=== PATIENT | female | born 1990 | race Two or more races ===

== ENCOUNTER 2020-08-20 18:00 | Inpatient (IN) ==
[2020-08-20] MEDS ORDERED: ONDANSETRON 4 MG TAB.RAPDIS PO PRN (18:26)
[2020-08-20] MEDS ORDERED: LIDOCAINE HCL 50 ML VIAL PERI PRN (18:26)
[2020-08-20] MEDS ORDERED: BUTORPHANOL TARTRATE 2 MG/ML VIAL IV PRN ×2 (18:26)
[2020-08-20] MEDS: MISOPROSTOL 100 MCG TABLET VG PRN (19:35)
[2020-08-20] MEDS ORDERED: hydrOXYzine PAMOATE 25 MG CAPSULE PO ONE (23:52)
[2020-08-20] MEDS ORDERED: ACETAMINOPHEN 500 MG TABLET PO ONE (23:52)
[2020-08-21] MEDS: OXYTOCIN/0.9 % SODIUM CHLORIDE 30 UNITS/500 ML BAG IV ONE (03:25)
[2020-08-21] MEDS: RINGER'S SOLUTION,LACTATED 1,000 ML IV PRN ×2 (03:30→15:41)
--- NOTE | 2020-08-21 08:14 | HP ---
Chief Complaint - Chief Complaint Date of Service: 08/21/20 Time of Service: 08:03 Chief Complaint: Induction of labor History of Present Illness: 29 year old at 39w 1d who presented to labor and delivery for a medical induction of labor due to chronic hypertension. She reports ctx. Denies vb or lof. Fetus is active. Denies VALDEZ, visual changes or abdominal pain. Medical History (Last Reviewed 08/21/20 @ 08:09 by Kathy Cao MD) Gestational diabetes mellitus (GDM) (Acute) Onset Date: 06/09/20 FSBS all within normal limits except a few elevated fasting blood sugars Cardiac murmur Oral cyst SAB (spontaneous ) Thyroiditis Surgical History: Surgical History (Last Reviewed 08/21/20 @ 08:09 by Kathy Cao MD) H/O dilation and curettage Onset Date: ~2017 Family History: Family History (Last Reviewed 08/21/20 @ 08:09 by Kathy Cao MD) Mother Diabetes Pre diabetes Father Hypertension Hyperlipemia Social History: (Last Reviewed 08/21/20 @ 08:09 by Kathy Cao MD) Social History: adopted: No Marital status: household members: spouse number of children: 0 current occupational status: unemployed 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 Highest level of school completed/degree received: Associate degree: occupat Sexually Active: Yes Service: No Tobacco: Smoking Status: Never smoker Alcohol: alcohol intake: former Substance Use: substance use type: does not use Dietary Habits: caffeine: Yes caffeine comment: 1 Type: carbonated beverages Pets: pets and animals: dog(s) Review Of Systems (GEN) - Review of Systems Generalized/Overall Review: Present: No Symptoms Reported Misc: All systems neg except as marked Allergies/Adverse Reactions: Allergies Allergy/AdvReac Type Severity Reaction Status Date / Time Penicillins Allergy Mild "Hot spots Verified 08/20/20 18:24 on arms" Home Medications: HOME MEDICATIONS aspirin 81 mg chewable tablet 81 mg PO DAILY 04/12/20 [Last Taken Unknown] docusate sodium 100 mg capsule 100 mg PO DAILY PRN 04/12/20 [Last Taken Unknown] blood-glucose meter See Rx Instructions [id number] .MEDSUPPLY #1 ea 06/15/20 [Last Taken Unknown] ferrous sulfate 325 mg (65 mg iron) tablet 325 mg PO DAILY 06/15/20 [Last Taken Unknown] lancets 30 gauge See Rx Instructions [id number] .MEDSUPPLY #100 ea 06/15/20 [Last Taken Unknown] breast pump See Rx Instructions .ROUTE .MEDSUPPLY #1 ea 07/13/20 [Last Taken Unknown] Exh961/Iron/FA/O3/Dha/Epa/Fish [ Multi-Dha Softgel] 1 ea PO DAILY 08/03/20 [Last Taken Unknown] blood sugar diagnostic See Rx Instructions [id number] .MEDSUPPLY #50 ea 08/14/20 [Last Taken Unknown] Exam - Exam Vital Signs: Vital Signs - Last Taken Temp 36.7 C 08/20/20 18:48 Pulse 80 08/20/20 18:48 BP 166/98 H 08/20/20 18:48 Constitutional: Present: Alert, Oriented x3, Cooperative, No distress ENT Exam: Present: hearing grossly normal Eye Exam: bilateral eye: normal inspection Neck: Present: normal inspection Back Exam: Present: normal inspection Breasts: Present: Exam deferred Respiratory: Present: lungs clear, normal breath sounds, no respiratory distress Cardiovascular/Chest: Present: regular rate, rhythm Abdomen: Present: soft, nontender, nondistended, no rebound tenderness /Rectal: Present: Exam deferred Extremity: Present: non-tender, no calf tenderness Skin Exam: Present: normal color, warm/dry, no cyanosis Neurologic: Present: alert, normal mood/affect, oriented x 3 Appearance: Present: appropriate appearance, appropriate insight, neat, no memory impairment Eye contact: Present: cooperative, good eye contact, normal speech Thoughts: Present: normal thought pattern Diagnostic Studies: Laboratory Results Blood Type O Positive 08/20/20 18:35 Antibody Screen Negative 08/20/20 18:35 Assessment/Plan - Narrative Narrative: 29 year old at 39w 1d 1. Medical IOL due to CHTN: BPs are in the mild range. Patient asymptomatic. The patient received one dose of misoprostol overnight. Currently on pitocin at 8 milliunits/minute. Given recent breech presentation a bedside ultrasound was performed which confirms cephalic presentation. 2. GDM: FSBS now 3. History of placenta previa this : resolved 4. GBS negative - Assessment/Plan (1) 39 weeks gestation of Problem: Acute (2) History of 2019 novel coronavirus disease (COVID-19) Problem: Acute (3) Gestational diabetes mellitus (GDM) Problem: Acute Qualifiers: Gestational diabetes mellitus control: diet-controlled Trimester: third trimester Qualified Code(s): O24.410 - Gestational diabetes mellitus in , diet controlled (4) Chronic hypertension Problem: Acute (5) PCOS (polycystic ovarian syndrome) Problem: Acute (6) Anxiety Problem: Acute
--- NOTE | 2020-08-21 08:19 | ANES ---
Anesthesia Pre Procedure Eval Vitals/Labs: Last Vital Signs Temp 36.7 C 08/20/20 18:48 Pulse 80 08/20/20 18:48 BP 166/98 H 08/20/20 18:48 HOME MEDICATIONS aspirin 81 mg chewable tablet 81 mg PO DAILY 04/12/20 [Last Taken Unknown] docusate sodium 100 mg capsule 100 mg PO DAILY PRN 04/12/20 [Last Taken Unknown] blood-glucose meter See Rx Instructions [id number] .MEDSUPPLY #1 ea 06/15/20 [Last Taken Unknown] ferrous sulfate 325 mg (65 mg iron) tablet 325 mg PO DAILY 06/15/20 [Last Taken Unknown] lancets 30 gauge See Rx Instructions [id number] .MEDSUPPLY #100 ea 06/15/20 [Last Taken Unknown] breast pump See Rx Instructions .ROUTE .MEDSUPPLY #1 ea 07/13/20 [Last Taken Unknown] Fyq091/Iron/FA/O3/Dha/Epa/Fish [ Multi-Dha Softgel] 1 ea PO DAILY 08/03/20 [Last Taken Unknown] blood sugar diagnostic See Rx Instructions [id number] .MEDSUPPLY #50 ea 08/14/20 [Last Taken Unknown] Allergies/Adverse Reactions: Allergies Allergy/AdvReac Type Severity Reaction Status Date / Time Penicillins Allergy Mild "Hot spots Verified 08/20/20 18:24 on arms" - Planned Procedure Planned Procedure: Labor Epidural Medical History (Last Reviewed 08/21/20 @ 08:18 by Sreedhar Mosher CRNA) Gestational diabetes mellitus (GDM) (Acute) Onset Date: 06/09/20 FSBS all within normal limits except a few elevated fasting blood sugars Cardiac murmur Oral cyst SAB (spontaneous ) Thyroiditis Surgical History (Last Reviewed 08/21/20 @ 08:18 by Sreedhar Mosher CRNA) H/O dilation and curettage Onset Date: ~2017 Family History (Last Reviewed 08/21/20 @ 08:18 by Sreedhar Mosher CRNA) Mother Diabetes Pre diabetes Father Hypertension Hyperlipemia - Anesthesia Assessment and Plan ASA Class: PS, II Anesthesia Type Plan: Epidural
[2020-08-21] MEDS ORDERED: ONDANSETRON HCL/PF 2 MG/ML VIAL IV PRN (08:24)
[2020-08-21] MEDS ORDERED: NALOXONE HCL 1 MG/1 ML SYRG IV PRN (08:24)
[2020-08-21] MEDS ORDERED: BUPIVACAINE HCL/PF 30 ML VIAL EP SCH (08:30)
--- NOTE | 2020-08-21 08:54 | ANES ---
Post Anesthesia Assessment - Vital Signs Vitals: Last Vital Signs Temp 36.7 C 08/20/20 18:48 Pulse 80 08/20/20 18:48 BP 166/98 H 08/20/20 18:48 Airway Patency: Normal - Mental Status Level Of Consciousness: Awake - N/V Assessment Nausea/Vomiting Presence: None Dehydration:: No
--- NOTE | 2020-08-21 08:54 | ANES ---
Anesthesia Procedure Note Procedure Note: ANESTHESIA PROCEDURE NOTE Date of Procedure: 08/21/2020. Time of procedure: 834. Performed by: Sreedhar Mosher CRNA Blanket Washer: None. Preprocedure diagnosis: Active labor. Post procedure diagnosis: Same. Procedure: Insertion of labor epidural. Indications: The patient is a 29-year-old female in active labor requesting labor epidural for pain management. Findings: See below. Details of the procedure: The patient was placed in a sitting position. DuraPrep as well as Betadine swabs X3 was applied to the patient's back. Patient was then draped in a sterile fashion. Lidocaine 1% was infiltrated to the skin and subcutaneous tissues at the level of the L3-4 interspace. The epidural space was identified using a 18-gauge Tuohy needle with [id number] technique. Epidural catheter was inserted to a depth of 10 centimeters at skin. Negative test dose was elicited using 3 mL of 1.5% preservative-free lidocaine plus epinephrine 1 200,000. The epidural catheter was then taped and secured in place. A loading dose of 8 mL of 0.25% preservative-free bupivacaine was administered to the epidural catheter after negative aspiration for blood and CSF. EBL: Minimal. Fluids: N/A. Specimen: N/A. Post procedure condition: The patient tolerated the procedure well. No complications were noted. Thank you for this consultation. Sreedhar Mosher CRNA
[2020-08-21] MEDS: BUPIVACAINE HCL/0.9 % NACL/PF 250 ML EP PRN (09:04)
[2020-08-21] MEDS: RINGER'S SOLUTION,LACTATED 1,000 ML IV ONE (09:04)
[2020-08-21] MEDS ORDERED: LIDOCAINE HCL 10 APPL CARTRIDGE MM ONE (10:30)
[2020-08-21] MEDS ORDERED: hydrOXYzine PAMOATE 50 MG CAPSULE PO PRN (11:10)
[2020-08-21] MEDS: MISOPROSTOL 100 MCG TABLET VG PRN ×3 (11:24→19:44)
[2020-08-21] MEDS ORDERED: MISOPROSTOL 100 MCG TABLET VG ONE (23:45)
[2020-08-22] MEDS: RINGER'S SOLUTION,LACTATED 1,000 ML IV PRN ×3 (00:35→17:01)
[2020-08-22] MEDS ORDERED: MISOPROSTOL 100 MCG TABLET ONE (02:36)
[2020-08-22] MEDS: BUPIVACAINE HCL/0.9 % NACL/PF 250 ML EP PRN ×2 (03:10→21:08)
[2020-08-22] MEDS ORDERED: DINOPROSTONE 10 MG SUPP.VAG VG ONE (04:16)
--- NOTE | 2020-08-22 07:19 | PN ---
Flor Note - Interim Date: 08/22/20 Time: 07:17 Narrative: 08/22/20 07:17 Patient comfortable with epidural 1.5/70/-3 Unable to AROM Start pitocin FHT cat 1
[2020-08-22] MEDS: OXYTOCIN/0.9 % SODIUM CHLORIDE 30 UNITS/500 ML BAG IV ONE (08:50)
[2020-08-22 15:36] LABS: Hematocrit 38.6 % (37.0-47.0); Hemoglobin 12.6 gm/dL (12.5-16.0); Mean Corpuscular Hemoglobin 29.4 pg (27-31); Mean Corpuscular Hgb Conc 32.6 g/dl (32-36); Mean Platelet Volume 10.8 fl (8-12.5); Neutrophil # 8.2 K/mm3 (1.3-6.0); Neutrophil % 72.2 % (42-75.0); Platelet Count 189 K/mm3 (150-450); Red Blood Count 4.29 M/mm3 (4.2-5.4); Red Cell Distribution Width 13.8 % (11.5-14.0); White Blood Count 11.4 K/mm3 (4.0-10.5)
[2020-08-22 15:37] LABS: Random Urine Total Protein Less than 6.0 mg/dL (0-12)
[2020-08-22 15:51] LABS: Albumin * 2.6 gm/dl (3.4-5.0); Anion Gap 14.1 mmol/L (6.8-13.8); BUN/Creatinine Ratio 8.1 (9.0-21.6); Bilirubin, Total 0.3 mg/dL (0.0-1.1); Ca. Corrected For Albumin 10.2 mg/dL (8.4-10.2); Calcium * 9.4 mg/dL (7.9-10.9); Carbon Dioxide 22.6 mmol/L (24-32.6); Potassium 3.7 mmol/L (3.4-4.6); Total Protein 6.7 gm/dL (6.2-8.2)
--- NOTE | 2020-08-22 17:51 | PN ---
Progess Note - Interim Date: 08/22/20 Time: 17:50 Narrative: 08/22/20 17:50 Patient comfortable with epidural cvx is 2/-3 AROM attempted and not successful IUPC placed between membranes and uterine wall FHT cat 2
--- NOTE | 2020-08-22 18:18 | PN ---
Progess Note - Interim Date: 08/22/20 Time: 18:16 Narrative: 08/22/20 18:16 Patient comfortable with epidural Attempted to place Nina bulb. After placing Nina bulb a vaginal examination was performed and the Nina bulb was noted to be in the vagina rather than the cervix. Nina bulb fluid removed and Nina removed. Once again AROM attempted but unable to The patient's cervix is 2/70/-3 Continue to titrate pitocin up Attempt AROM again in the morning if it doesn't happen spontaneously FHT now cat 1
[2020-08-22] MEDS ORDERED: MAGNESIUM SULFATE IN WATER 50 ML IV ONE (23:28)
[2020-08-22] MEDS ORDERED: CALCIUM GLUCONATE 4.65 MEQ/10 ML VIAL IV PRN (23:28)
[2020-08-23 00:10] LABS: Hematocrit 39.4 % (37.0-47.0); Hemoglobin 12.7 gm/dL (12.5-16.0); Mean Cell Volume 90.4 fl (78-100); Mean Corpuscular Hemoglobin 29.1 pg (27-31); Mean Corpuscular Hgb Conc 32.2 g/dl (32-36); Mean Platelet Volume 10.8 fl (8-12.5); Platelet Count 208 K/mm3 (150-450); Red Blood Count 4.36 M/mm3 (4.2-5.4); Red Cell Distribution Width 13.5 % (11.5-14.0)
[2020-08-23 00:12] LABS: Total Cells Counted 100
[2020-08-23 00:23] LABS: Albumin * 2.5 gm/dl (3.4-5.0); Anion Gap 15.8 mmol/L (6.8-13.8); BUN/Creatinine Ratio 7.6 (9.0-21.6); Bilirubin, Total 0.5 mg/dL (0.0-1.1); Ca. Corrected For Albumin 10.1 mg/dL (8.4-10.2); Calcium * 9.2 mg/dL (7.9-10.9); Carbon Dioxide 20.8 mmol/L (24-32.6); Potassium 3.6 mmol/L (3.4-4.6); Total Protein 6.6 gm/dL (6.2-8.2); Uric Acid 4.8 mg/dL (2.6-7.2)
[2020-08-23 00:27] LABS: Atypical (Reactive) Lymph 7 % (0-2); Lymphocyte 12 % (20-51); Monocyte 6 % (0-9); Neutrophil 75 % (42-75); Neutrophil # 11.3 K/mm3 (1.3-6.0); Platelet Estimate Normal (NORMAL); RBC Morphology Normal (NORMAL)
[2020-08-23] MEDS: MAGNESIUM SULFATE IN WATER 1,000 ML IV SCH ×2 (00:30→19:35)
[2020-08-23] MEDS: RINGER'S SOLUTION,LACTATED 1,000 ML IV PRN (02:16)
[2020-08-23] MEDS ORDERED: DEXTROSE 5%-LACTATED RINGERS 1,000 ML IV PRN (05:45)
[2020-08-23] MEDS: RINGER'S SOLUTION,LACTATED 1,000 ML IV ONE (06:39)
[2020-08-23] MEDS ORDERED: RINGER'S SOLUTION,LACTATED 1,000 ML IV PRN (06:52)
[2020-08-23] MEDS ORDERED: CLINDAMYCIN IN 0.9 % SOD CHLOR 900 MG/50 ML BAG IV ONE (06:52)
[2020-08-23] MEDS ORDERED: Oxytocin/Ringers Lactate 20 UNITS/1,000 ML BAG IV ONE ×2 (06:52→09:26)
[2020-08-23] MEDS ORDERED: fentaNYL CITRATE/PF 50 MCG/ML AMPUL ONE (06:59)
[2020-08-23] MEDS ORDERED: BUPIVACAINE HCL/EPINEPHRINE 50 ML VIAL ONE (06:59)
[2020-08-23] MEDS ORDERED: MIDAZOLAM HCL/PF 5 MG/ML VIAL ONE (06:59)
[2020-08-23] MEDS ORDERED: ONDANSETRON HCL/PF 2 MG/ML VIAL ONE (06:59)
[2020-08-23] MEDS ORDERED: SODIUM BICARBONATE 1 MEQ/ML SYRG ONE (07:02)
[2020-08-23] MEDS ORDERED: LIDOCAINE HCL/EPINEPHRINE 20 ML VIAL ONE (07:02)
[2020-08-23] MEDS ORDERED: PROCHLORPERAZINE EDISYLATE 5 MG/ML VIAL IV PRN (07:09)
[2020-08-23] MEDS ORDERED: NALOXONE HCL 0.4 MG/ML VIAL IV PRN (07:09)
[2020-08-23] MEDS ORDERED: diphenhydrAMINE HCL 50 MG/ML VIAL IV PRN (07:09)
[2020-08-23] MEDS ORDERED: HYDROmorphone HCL 2 MG/ML VIAL IV PRN (07:09)
--- NOTE | 2020-08-23 07:11 | ANES ---
Anesthesia Pre Procedure Eval Vitals/Labs: Last Vital Signs Temp 36.0 C 08/23/20 00:36 Pulse 60 08/23/20 00:36 Resp 18 08/23/20 00:36 BP 158/110 H 08/23/20 00:36 Pulse Ox 98 08/23/20 00:36 HOME MEDICATIONS aspirin 81 mg chewable tablet 81 mg PO DAILY 04/12/20 [Last Taken Unknown] docusate sodium 100 mg capsule 100 mg PO DAILY PRN 04/12/20 [Last Taken Unknown] blood-glucose meter See Rx Instructions [id number] .MEDSUPPLY #1 ea 06/15/20 [Last Taken Unknown] ferrous sulfate 325 mg (65 mg iron) tablet 325 mg PO DAILY 06/15/20 [Last Taken Unknown] lancets 30 gauge See Rx Instructions [id number] .MEDSUPPLY #100 ea 06/15/20 [Last Taken Unknown] breast pump See Rx Instructions .ROUTE .MEDSUPPLY #1 ea 07/13/20 [Last Taken Unknown] Wir472/Iron/FA/O3/Dha/Epa/Fish [ Multi-Dha Softgel] 1 ea PO DAILY 08/03/20 [Last Taken Unknown] blood sugar diagnostic See Rx Instructions [id number] .MEDSUPPLY #50 ea 08/14/20 [Last Taken Unknown] Allergies/Adverse Reactions: Allergies Allergy/AdvReac Type Severity Reaction Status Date / Time Penicillins Allergy Mild "Hot spots Verified 08/20/20 18:24 on arms" - Planned Procedure Planned Procedure: C/S Medication List Reviewed:: Yes Allergies Verified: Yes Medical History (Last Reviewed 08/23/20 @ 07:10 by Sreedhar Mosher CRNA) Gestational diabetes mellitus (GDM) (Acute) Onset Date: 06/09/20 FSBS all within normal limits except a few elevated fasting blood sugars Cardiac murmur Oral cyst SAB (spontaneous ) Thyroiditis Surgical History (Last Reviewed 08/23/20 @ 07:10 by Sreedhar Mosher CRNA) H/O dilation and curettage Onset Date: ~2017 Family History (Last Reviewed 08/23/20 @ 07:10 by Sreedhar Mosher CRNA) Mother Diabetes Pre diabetes Father Hypertension Hyperlipemia - Family Anesthesia History Family History:: no untoward family reactions to anesthesia, no familial bleeding tendencies, no family history of clotting disorders, no family history of premature - Airway/Neck/Teeth Within Normal Limits:: Yes Teeth Condition: intact Mallampatti Score: 2 Thyromental (T-M) distance: > 6 cm Mandibulo Hyoid distance: > 3 cm - Respiratory Respiratory Physical: lungs clear - Cardiovascular Tolerate Activity: Good Heart Sounds: S1 & S2, Regular - Gastrointestinal NPO since: mn - Anesthesia Assessment and Plan ASA Class: PS, II, E Anesthesia Type Plan: Block - Bilateral ultrasound guided TAP blocks for postop analgesia, Epidural
--- NOTE | 2020-08-23 07:15 | PN ---
Progesleigh Note - Interim Date: 08/23/20 Time: 07:13 Narrative: 08/23/20 07:13 No cervical change The patient has developed severe pre-eclampsia and is on magnesium Proceed with primary delivery due to failure to progress All risks, benefits, and alternatives of the procedure were explained to the patient and the patient consented to the procedure
--- NOTE | 2020-08-23 08:11 | OR ---
Operative Report - Dictated Report Narrative: Date of delivery: 08/23/2020 Time of delivery: 738 Gender: female weight: 3101 grams APGARS: 7/9 Preoperative diagnosis: IUP at 39w 3d, unsuccessful induction of labor, failure to progress, CHTN with possible superimposed pre-eclampsia with severe features Postoperative diagnosis: same in addition to meconium stained amniotic fluid and loose nuchal cord Procedure: primary delivery Surgeon: Dr. Cao Anesthesia: Epidural Anesthesiologist: Sreedhar Mosher CRNA Description of the procedure: The patient was taken to the operating room and she received a redose of her epidural. She was then prepped and draped in the lithotomy position in the standard surgical fashion. A Pfannestiel skin incision was made. The incision was carried through the subcutaneous tissue. The fascia was incised in the midline. The fascial incision was extended bilaterally. The fascia was grasped with Coretta clamps and dissected off the underlying rectus muscle. The rectus muscles were in the midline. The peritoneum was entered bluntly. A large Brandon retractor was placed in the abdomen. The uterus was incised in a low transverse fashion. The uterine incision was incised bluntly. The membranes were ruptured and meconium-stained amniotic fluid was noted. The head was delivered without difficulty. The shoulders delivered without difficulty followed by the rest of the infant. The cord was clamped and cut. The was handed off to the attending pediatric staff. Cord blood was collected. The placenta was removed by expression and appeared intact. The uterus was cleared of all clots and debris. The uterine incision was closed with 0-vicryl. A second imbricating layer of 0- vicryl was used. Hemostasis was adequate. The Brandon was removed from the abdomen. The rectus muscles and subfascial tissues were inspected for hemostasis. Hemostasis was adequate. The fascia was closed with 1-0 vicryl. The subcutaneous tissue was closed with 2-0 vicryl. The skin incision was closed with 3-0 monocryl on a Jerome needle. Tifton edwards was placed over the incision. The incision was covered with a dressing. All sponge, lap, and needle counts were correct. The patient tolerated the procedure well. She was transferred to the recovery room in stable condition. EBL: 400 mL Complications: none Specimens: cord blood, placenta to pathology History for MU Definition: * The number of deliveries resulting in a live the patient experienced prior to current hospitalization * The previous delivery of live twins or any live multiple gestation is considered one live event. *If primagravida or nulliparous is documented select zero for the number of previous live births. Live Events: 0
[2020-08-23] MEDS ORDERED: BUPIVACAINE HCL/EPINEPHRINE 50 ML VIAL IJ ONE (08:24)
--- NOTE | 2020-08-23 08:39 | ANES ---
Post Anesthesia Discharge - Transfer of Care Transfer of Care handoff given to nurse: Yes - Discharge from PACU Discharge from PACU when meets criteria: Yes - Discharge to ASU Discharge to ASU-no complications/pt stable: Yes
--- NOTE | 2020-08-23 08:40 | ANES ---
Anesthesia Procedure Note Procedure Note: ANESTHESIA PROCEDURE NOTE Date of Procedure: 08/23/2020. Time of procedure: 724. Performed by: Sreedhar Mosher CRNA Director Of Critical Care: None. Preprocedure diagnosis: Routine . Post procedure diagnosis: Same. Procedure: Bilateral ultrasound-guided transversus abdominis plane block for postop analgesia. Indications: The patient is a 29-year-old female post section. Findings: See below. Details of the procedure: ChloraPrep was used on the patient's abdomen and the procedure was performed under sterile technique. The right abdominal fascial layer between the internal oblique muscle and the transversus abdominis muscles was identified under ultrasound guidance. A 21-gauge 4 inch block needle was inserted under ultrasound guidance to the target fascial plane. 15 mL's of 0.25% bupivacaine plus epinephrine 1:200,000 was injected after negative aspiration for blood. The needle was removed intact and the procedure was then repeated at the left side. No complications were noted. The images were retained in the hospital medical database. EBL: Minimal. Fluids: N/A. Specimen: N/A. Post procedure condition: The patient tolerated the procedure well. No complications were noted. Thank you for this consultation. Sreedhar Mosher CRNA
[2020-08-23] MEDS ORDERED: HYDROcodone/ACETAMINOPHEN 1 EACH TABLET PO PRN (09:26)
[2020-08-23] MEDS ORDERED: BISACODYL 10 MG SUPP.RECT RC PRN (09:26)
[2020-08-23] MEDS ORDERED: diphenhydrAMINE HCL 25 MG CAPSULE PO PRN (09:26)
[2020-08-23] MEDS ORDERED: SENNOSIDES 8.6 MG TABLET PO PRN (09:26)
[2020-08-23] MEDS ORDERED: ONDANSETRON HCL/PF 2 MG/ML VIAL IV PRN (09:26)
[2020-08-23] MEDS ORDERED: SIMETHICONE 80 MG TAB.CHEW PO PRN (09:26)
[2020-08-23] MEDS: LABETALOL HCL 100 MG TABLET PO SCH ×2 (09:38→20:41)
[2020-08-23] MEDS: HYDROcodone/ACETAMINOPHEN 1 EACH TABLET PO PRN ×4 (09:38→19:42)
[2020-08-23] MEDS: KETOROLAC TROMETHAMINE 30 MG/ML VIAL IV PRN ×3 (09:39→23:38)
[2020-08-23] MEDS: DOCUSATE SODIUM 100 MG CAPSULE PO SCH (20:41)
[2020-08-24] MEDS: HYDROcodone/ACETAMINOPHEN 1 EACH TABLET PO PRN ×3 (03:01→17:54)
[2020-08-24] MEDS ORDERED: GENTAMICIN SULFATE 80 MG in DEXTROSE 5 % IN WATER 100 ML IV PRN ×2 (06:00)
[2020-08-24] MEDS: DOCUSATE SODIUM 100 MG CAPSULE PO SCH ×3 (07:50→23:32)
[2020-08-24] MEDS: IBUPROFEN 800 MG TABLET PO PRN ×2 (07:50→17:54)
[2020-08-24] MEDS: LABETALOL HCL 100 MG TABLET PO SCH ×3 (07:51→23:30)
--- NOTE | 2020-08-24 08:13 | PN ---
Subjective - Date and Time Seen Date: 08/24/20 Time: 08:10 Subjective Narrative: Patient doing well. Complains of vaginal bleeding. Objective Objective Narrative: See vital signs - Review of Systems Generalized/Overall Review: Reports: No Symptoms Reported Misc: All systems neg except as marked - Vitals Vitals: Last Vital Signs Temp 36.1 C 08/24/20 06:40 Pulse 85 08/24/20 07:51 Resp 16 08/24/20 07:40 BP 108/72 08/24/20 07:51 Pulse Ox 97 08/24/20 06:40 - Exam Constitutional: Present: Alert, Oriented x3, Cooperative, No distress ENT Exam: Present: hearing grossly normal Neck: Present: normal inspection Respiratory: Present: lungs clear, normal breath sounds Cardiovascular/Chest: Present: regular rate, rhythm Abdomen: Present: soft, nontender, nondistended - dressing c/d/i Extremity: Present: non-tender, leg cramps Skin Exam: Present: normal color, warm/dry, no cyanosis Neurologic: Present: alert, normal mood/affect, oriented x 3 Appearance: Present: appropriate appearance, appropriate insight, neat, no memory impairment Eye contact: Present: cooperative, good eye contact, normal speech Thoughts: Present: normal thought pattern Cauti Physician Documentation - Urinary Catheter Management Urethral (Nina) Urethral Indwelling: No Date of Insertion: 08/21/20 Time of Insertion: 10:45 Assessment/Plan Plan Narrative: POD 1 s/p primary delivery SIP with severe features BPs are normal, continue labetalol, await diuresis, off magnesium now Ambulation today - Problems/Diagnosis (1) 39 weeks gestation of Problem: Acute (2) History of 2019 novel coronavirus disease (COVID-19) Problem: Acute (3) Gestational diabetes mellitus (GDM) Problem: Acute Qualifiers: Gestational diabetes mellitus control: diet-controlled Trimester: third trimester Qualified Code(s): O24.410 - Gestational diabetes mellitus in , diet controlled (4) Chronic hypertension Problem: Acute (5) PCOS (polycystic ovarian syndrome) Problem: Acute (6) Anxiety Problem: Acute (7) Pre-eclampsia superimposed on chronic hypertension, delivered Problem: Acute (8) Failure to progress in first stage of labor Problem: Acute (9) Status post primary low transverse section Problem: Acute
[2020-08-24] MEDS ORDERED: HYDROmorphone HCL 1 MG/ML DISP.SYRIN IV PRN (10:00)
--- NOTE | 2020-08-24 11:04 | ANES ---
Post Anesthesia Assessment - Vital Signs Vitals: Last Vital Signs Temp 36.1 C 08/24/20 06:40 Pulse 85 08/24/20 07:51 Resp 16 08/24/20 07:40 BP 108/72 08/24/20 07:51 Pulse Ox 97 08/24/20 06:40 Airway Patency: Normal - Mental Status Level Of Consciousness: Awake - Pain Level Pain Score: 0 - N/V Assessment Nausea/Vomiting Presence: None Dehydration:: No
[2020-08-24 12:41] LABS: Mean Cell Volume 88.7 fl (78-100); Mean Corpuscular Hemoglobin 29.3 pg (27-31); Mean Platelet Volume 10.3 fl (8-12.5); Neutrophil % 81.7 % (42-75.0); Platelet Count 124 K/mm3 (150-450); Red Blood Count 2.56 M/mm3 (4.2-5.4); Red Cell Distribution Width 14.2 % (11.5-14.0); White Blood Count 14.7 K/mm3 (4.0-10.5)
[2020-08-24 12:48] LABS: Hemoglobin 7.5 gm/dL (12.5-16.0)
[2020-08-24 12:49] LABS: Hematocrit 22.7 % (37.0-47.0)
[2020-08-24] MEDS ORDERED: MISOPROSTOL 200 MCG TABLET RC ONE (17:15)
--- NOTE | 2020-08-24 17:26 | PN ---
Progess Note - Interim Date: 08/24/20 Time: 17:25 Narrative: 08/24/20 17:25 The patient got lightheaded and dizzy when it was attempted to get her up today after her Nina was removed CBC was checked and the patient was found to have acute blood loss anemia due PPH from uterine atony 2 units of PRBCs ordered Will recheck CBC and CMP in the AM Incision c/d/i Fundus is firm Cytotec 1000 mcg administered rectally for uterine atony
[2020-08-24] MEDS ORDERED: CARBOPROST TROMETHAMINE 250 MCG/ML AMPUL IM STA (20:13)
[2020-08-24] MEDS ORDERED: OXYTOCIN/0.9 % SODIUM CHLORIDE 30 UNITS/500 ML BAG IV ONE (20:15)
[2020-08-24 20:33] LABS: Hematocrit 28.6 % (37.0-47.0); Hemoglobin 9.6 gm/dL (12.5-16.0); Mean Cell Volume 89.7 fl (78-100); Mean Corpuscular Hemoglobin 30.1 pg (27-31); Mean Corpuscular Hgb Conc 33.6 g/dl (32-36); Mean Platelet Volume 10.1 fl (8-12.5); Neutrophil # 11.7 K/mm3 (1.3-6.0); Neutrophil % 78.4 % (42-75.0); Platelet Count 95 K/mm3 (150-450); Red Blood Count 3.19 M/mm3 (4.2-5.4); Red Cell Distribution Width 14.2 % (11.5-14.0)
--- NOTE | 2020-08-24 21:04 | PN ---
Progess Note - Interim Date: 08/24/20 Time: 21:00 Narrative: 08/24/20 21:00 Called by RN regarding 800 mL of vaginal bleeding and uterine fundus no longer firm and above the umbilicus The patient received cytotec 1000 mcg rectally around 1730 today due to bleeding She has also received a dose of hemabate Methergine contraindicated due to hypertension Pitocin 30 units to be administered in the operating room The patient does not tolerate pelvic exams so will take back to the operating room for an exam under anesthesia, suction curettage, and likely placement of intrauterine balloon catheter. All risks, benefits, and alternatives were discussed with the patient and the patient consented to surgical intervention The patient is s/p 2 units of PRBCs. There is an appropriate rise in her hemoglobin. CMP is pending Thrombocytopenia is worsening
[2020-08-24] MEDS: RINGER'S SOLUTION,LACTATED 1,000 ML IV PRN (21:20)
[2020-08-24 21:22] LABS: Albumin * 2.3 gm/dl (3.4-5.0); Anion Gap 12.5 mmol/L (6.8-13.8); BUN/Creatinine Ratio 10.4 (9.0-21.6); Bilirubin, Total 0.9 mg/dL (0.0-1.1); Ca. Corrected For Albumin 7.9 mg/dL (8.4-10.2); Calcium * 6.9 mg/dL (7.9-10.9); Carbon Dioxide 23.2 mmol/L (24-32.6); Potassium 3.7 mmol/L (3.4-4.6); Total Protein 5.4 gm/dL (6.2-8.2)
[2020-08-24] MEDS ORDERED: ceFAZolin SODIUM 1 GM VIAL IV PRN (21:51)
[2020-08-24] MEDS ORDERED: ZOLPIDEM TARTRATE 10 MG TABLET PO PRN (22:24)
--- NOTE | 2020-08-24 22:33 | OR ---
Operative Report - Dictated Report Narrative: Preoperative diagnosis: PPH, uterine atony Postoperative diagnosis: same Procedure: Exam under anesthesia, placement of intrauterine balloon catheter Surgeon: Dr. Cao Anesthesia: Spinal Anesthesiologist: Geoffrey Mccord CRNA Description of the procedure: The patient was taken to the operating room where spinal anesthesia was given. She was then prepped and draped in the lithotomy position in the standard surgical fashion. Several clots were expressed by the prep. A Nina catheter was placed in the bladder. A sterile speculum was placed in the patient's vagina. The posterior lip of the cervix was identified. Further clots were expressed. A total of 600 mL of clots were expressed. The patient then had a bowel movement so she was reprepped. A weighted speculum was placed in the posterior vagina. A Andrews retractor was placed. The anterior cervix was not identified. The cervix was identified via a digital vaginal examination. The ring forcep was guided to the anterior cervix and the anterior cervix was grasped. A 24 Fr Nina was placed in the uterus and it was filled with 90 mL of saline. This catheter was attached to a bag to record blood loss. All sponge, lap, and needle counts were correct. The patient tolerated the procedure well. She was transferred to the recovery room in stable condition.
--- NOTE | 2020-08-24 22:34 | ANES ---
Anesthesia Pre Procedure Eval Vitals/Labs: Last Vital Signs Temp 36.4 C 08/24/20 20:35 Pulse 78 08/24/20 20:35 Resp 18 08/24/20 20:35 BP 127/73 08/24/20 20:35 Pulse Ox 99 08/24/20 20:35 HOME MEDICATIONS aspirin 81 mg chewable tablet 81 mg PO DAILY 04/12/20 [Last Taken Unknown] docusate sodium 100 mg capsule 100 mg PO DAILY PRN 04/12/20 [Last Taken Unknown] blood-glucose meter See Rx Instructions [id number] .MEDSUPPLY #1 ea 06/15/20 [Last Taken Unknown] ferrous sulfate 325 mg (65 mg iron) tablet 325 mg PO DAILY 06/15/20 [Last Taken Unknown] lancets 30 gauge See Rx Instructions [id number] .MEDSUPPLY #100 ea 06/15/20 [Last Taken Unknown] breast pump See Rx Instructions .ROUTE .MEDSUPPLY #1 ea 07/13/20 [Last Taken Unknown] Ghs311/Iron/FA/O3/Dha/Epa/Fish [ Multi-Dha Softgel] 1 ea PO DAILY 08/03/20 [Last Taken Unknown] blood sugar diagnostic See Rx Instructions [id number] .MEDSUPPLY #50 ea 08/14/20 [Last Taken Unknown] Allergies/Adverse Reactions: Allergies Allergy/AdvReac Type Severity Reaction Status Date / Time Penicillins Allergy Mild "Hot spots Verified 08/20/20 18:24 on arms" - Planned Procedure Planned Procedure: vaginal exam under anesthesia Medication List Reviewed:: Yes Allergies Verified: Yes Medical History (Last Reviewed 08/24/20 @ 22:33 by Srinivas Mccord CRNA) Gestational diabetes mellitus (GDM) (Acute) Onset Date: 06/09/20 FSBS all within normal limits except a few elevated fasting blood sugars Cardiac murmur Oral cyst SAB (spontaneous ) Thyroiditis Surgical History (Last Reviewed 08/24/20 @ 22:33 by Srinivas Mccord CRNA) H/O dilation and curettage Onset Date: ~2017 Family History (Last Reviewed 08/24/20 @ 22:33 by Srinivas Mccord CRNA) Mother Diabetes Pre diabetes Father Hypertension Hyperlipemia - Family Anesthesia History Family History:: no untoward family reactions to anesthesia - Airway/Neck/Teeth Within Normal Limits:: Yes Teeth Condition: intact Neck Exam: full range of motion Mallampatti Score: 2 Thyromental (T-M) distance: > 6 cm Mandibulo Hyoid distance: > 3 cm - Respiratory Respiratory Physical: lungs clear Smoking Status: Never smoker Sleep Apnea currently treated: No Sleep Apnea by current assessment: No - Cardiovascular Tolerate Activity: Good Heart Sounds: S1 & S2, Regular - Gastrointestinal NPO since: 1729 Comments:: surgeon declared case an emergency - Anesthesia Assessment and Plan ASA Class: PS, II, E Anesthesia Type Plan: Spinal Planned difficult intubation/equipment available: No
--- NOTE | 2020-08-24 22:34 | ANES ---
Post Anesthesia Discharge - Transfer of Care Transfer of Care handoff given to nurse: Yes - Discharge from PACU Discharge from PACU when meets criteria: Yes
--- NOTE | 2020-08-24 22:50 | ANES ---
Post Anesthesia Assessment - Vital Signs Vitals: Last Vital Signs Temp 36.4 C 08/24/20 22:45 Pulse 72 08/24/20 22:45 Resp 14 08/24/20 22:45 BP 126/78 08/24/20 22:45 Pulse Ox 98 08/24/20 22:45 Airway Patency: Normal - Mental Status Level Of Consciousness: Awake - Pain Level Pain Score: 0 - N/V Assessment Nausea/Vomiting Presence: None Dehydration:: No
[2020-08-24] MEDS: PRENATAL VITS96/IRON FUM/FOLIC 1 TAB TABLET PO SCH (23:26)
[2020-08-25] MEDS: HYDROcodone/ACETAMINOPHEN 1 EACH TABLET PO PRN ×3 (05:18→23:45)
[2020-08-25] MEDS: IBUPROFEN 800 MG TABLET PO PRN ×3 (05:18→23:45)
[2020-08-25 06:33] LABS: Hematocrit 28.7 % (37.0-47.0); Hemoglobin 9.7 gm/dL (12.5-16.0); Mean Corpuscular Hemoglobin 29.4 pg (27-31); Mean Corpuscular Hgb Conc 33.8 g/dl (32-36); Mean Platelet Volume 10.9 fl (8-12.5); Neutrophil # 11.9 K/mm3 (1.3-6.0); Neutrophil % 80.2 % (42-75.0); Platelet Count 92 K/mm3 (150-450); Red Cell Distribution Width 15.1 % (11.5-14.0); White Blood Count 14.8 K/mm3 (4.0-10.5)
--- NOTE | 2020-08-25 07:25 | PN ---
Subjective - Date and Time Seen Date: 08/25/20 Time: 07:22 Subjective Narrative: Patient doing well. Complains of vaginal bleeding. Objective Objective Narrative: See vital signs - Review of Systems Generalized/Overall Review: Reports: No Symptoms Reported Misc: All systems neg except as marked - Vitals Vitals: Last Vital Signs Temp 37.7 C 08/25/20 04:58 Pulse 95 08/25/20 04:58 Resp 20 08/25/20 04:58 BP 126/71 08/25/20 04:58 Pulse Ox 95 08/25/20 04:58 - Abnormal Lab Findings Abnormal Lab Findings: Abnormal Lab Results 08/22/20 08/24/20 08/24/20 Range/Units 15:30 12:25 20:30 WBC 14.7 H 15.0 H (4.0-10.5) K/mm3 RBC 2.56 L 3.19 L (4.2-5.4) M/mm3 Hgb 7.5 L* D 9.6 L (12.5-16.0) gm/dL Hct 22.7 L* D 28.6 L (37.0-47.0) % RDW 14.2 H 14.2 H (11.5-14.0) % Plt Count 124 L 95 L (150-450) K/mm3 Immature Gran % (Auto) 0.60 H 0.60 H (0.001-0.429) % Immature Gran # (Auto) 0.09 H 0.09 H (0.000-0.0310) K/mm3 Neutrophils % 81.7 H 78.4 H (42-75.0) % Lymphocytes % 12.0 L 13.8 L (20-51) % Neutrophils # 12.0 H 11.7 H (1.3-6.0) K/mm3 Carbon Dioxide (24-32.6) mmol/L Random Glucose (70-110) mg/dL Calcium (7.9-10.9) mg/dL Calcium Adj for Albumin (8.4-10.2) mg/dL ALT (19-67) U/L Total Protein (6.2-8.2) gm/dL Albumin (3.4-5.0) gm/dl Crossmatch See Detail 08/24/20 08/25/20 Range/Units 21:00 06:10 WBC 14.8 H (4.0-10.5) K/mm3 RBC 3.30 L (4.2-5.4) M/mm3 Hgb 9.7 L (12.5-16.0) gm/dL Hct 28.7 L (37.0-47.0) % RDW 15.1 H (11.5-14.0) % Plt Count 92 L (150-450) K/mm3 Immature Gran % (Auto) 0.60 H (0.001-0.429) % Immature Gran # (Auto) 0.09 H (0.000-0.0310) K/mm3 Neutrophils % 80.2 H (42-75.0) % Lymphocytes % 11.5 L (20-51) % Neutrophils # 11.9 H (1.3-6.0) K/mm3 Carbon Dioxide 23.2 L (24-32.6) mmol/L Random Glucose 118 H D (70-110) mg/dL Calcium 6.9 L (7.9-10.9) mg/dL Calcium Adj for Albumin 7.9 L (8.4-10.2) mg/dL ALT 9 L (19-67) U/L Total Protein 5.4 L (6.2-8.2) gm/dL Albumin 2.3 L (3.4-5.0) gm/dl Crossmatch - Exam Constitutional: Present: Alert, Oriented x3, Cooperative, No distress ENT Exam: Present: hearing grossly normal Neck: Present: normal inspection Abdomen: Present: soft, nontender, nondistended - incision c/d/i Extremity: Present: non-tender, no calf tenderness Skin Exam: Present: normal color, warm/dry, no cyanosis Neurologic: Present: alert, normal mood/affect, oriented x 3 Appearance: Present: appropriate appearance, appropriate insight, neat, no memory impairment Eye contact: Present: cooperative, good eye contact, normal speech Thoughts: Present: normal thought pattern Cauti Physician Documentation - Urinary Catheter Management Urethral (Nina) Urethral Indwelling: Yes Reason for Continuing Indwelling Catheter: Measure accurate output Date of Insertion: 08/24/20 Time of Insertion: 21:45 Date of Removal: 08/24/20 Time of Removal: 11:40 Assessment/Plan Plan Narrative: POD 2 s/p primary delivery POD 1 s/p EUA, placement of intrauterine Nina balloon The patient is doing well Hemoglobin stable s/p transfusion of an additional unit of PRBC Thrombocytopenia stable Good UOP Recheck CBC in the morning BP is mild to normal range. Continue labetalol 100 mg PO BID Anticipate discharge tomorrow - Problems/Diagnosis (1) 39 weeks gestation of Problem: Acute (2) History of 2019 novel coronavirus disease (COVID-19) Problem: Acute (3) Gestational diabetes mellitus (GDM) Problem: Acute Qualifiers: Gestational diabetes mellitus control: diet-controlled Trimester: third trimester Qualified Code(s): O24.410 - Gestational diabetes mellitus in , diet controlled (4) Chronic hypertension Problem: Acute (5) PCOS (polycystic ovarian syndrome) Problem: Acute (6) Anxiety Problem: Acute (7) Pre-eclampsia superimposed on chronic hypertension, delivered Problem: Acute (8) Failure to progress in first stage of labor Problem: Acute (9) Status post primary low transverse section Problem: Acute (10) atony of uterus with hemorrhage Problem: Acute (11) hemorrhage Problem: Acute (12) Acute blood loss anemia Problem: Acute (13) Blood transfusion during current hospitalisation Problem: Acute
[2020-08-25] MEDS: LABETALOL HCL 100 MG TABLET PO SCH ×2 (10:27→20:27)
[2020-08-25] MEDS: PRENATAL VITS96/IRON FUM/FOLIC 1 TAB TABLET PO SCH (10:28)
[2020-08-25] MEDS: DOCUSATE SODIUM 100 MG CAPSULE PO SCH ×2 (10:31→23:55)
[2020-08-26 07:27] LABS: Hematocrit 31.1 % (37.0-47.0); Hemoglobin 10.3 gm/dL (12.5-16.0); Mean Cell Volume 89.1 fl (78-100); Mean Corpuscular Hemoglobin 29.5 pg (27-31); Mean Corpuscular Hgb Conc 33.1 g/dl (32-36); Mean Platelet Volume 10.2 fl (8-12.5); Neutrophil # 8.9 K/mm3 (1.3-6.0); Neutrophil % 66.5 % (42-75.0); Platelet Count 123 K/mm3 (150-450); Red Blood Count 3.49 M/mm3 (4.2-5.4); Red Cell Distribution Width 15.3 % (11.5-14.0); White Blood Count 13.3 K/mm3 (4.0-10.5)
[2020-08-26] MEDS: LABETALOL HCL 100 MG TABLET PO SCH ×2 (07:45→08:54)
[2020-08-26] MEDS: PRENATAL VITS96/IRON FUM/FOLIC 1 TAB TABLET PO SCH ×2 (07:45→08:54)
[2020-08-26] MEDS: IBUPROFEN 800 MG TABLET PO PRN (08:36)
[2020-08-26] MEDS: HYDROcodone/ACETAMINOPHEN 1 EACH TABLET PO PRN (08:36)
[2020-08-26 08:41] VITALS: BP 141/90
[2020-08-26] MEDS: DOCUSATE SODIUM 100 MG CAPSULE PO SCH (08:54)
--- NOTE | 2020-08-26 12:00 | PN ---
Subjective - Date and Time Seen Date: 08/26/20 Time: 11:56 Objective - Vitals Vitals: Last Vital Signs Temp 36.6 C 08/26/20 07:42 Pulse 75 08/26/20 07:45 Resp 18 08/26/20 07:42 BP 141/90 H 08/26/20 08:41 Pulse Ox 98 08/26/20 07:42 Patient denies complaints. Ambulating without difficulty. Tolerating regular diet. Pain well controlled. Lochia wnl. Abdomen - soft, appropriately tender Incision - [clean, dry, intact] Uterus - firm, at umbilicus -[3] No calf tenderness Impression: Post op day #3 s/p primary section for failed induction of labor for chronic hypertension with superimposed preeclampsia with severe features. hemorrhage due to uterine atony-stable. Plan: Routine discharge instructions with the addition of close monitoring for return of preeclampsia with severe features and hemorrhage. - Abnormal Lab Findings Abnormal Lab Findings: Abnormal Lab Results 08/26/20 Range/Units 07:20 WBC 13.3 H (4.0-10.5) K/mm3 RBC 3.49 L (4.2-5.4) M/mm3 Hgb 10.3 L (12.5-16.0) gm/dL Hct 31.1 L (37.0-47.0) % RDW 15.3 H (11.5-14.0) % Plt Count 123 L (150-450) K/mm3 Immature Gran % (Auto) 0.80 H (0.001-0.429) % Immature Gran # (Auto) 0.10 H (0.000-0.0310) K/mm3 Neutrophils # 8.9 H (1.3-6.0) K/mm3 Cauti Physician Documentation - Urinary Catheter Management Urethral (Nina) Urethral Indwelling: Yes Date of Insertion: 08/24/20 Time of Insertion: 21:45 Date of Removal: 08/24/20 Time of Removal: 11:40
--- NOTE | 2020-08-26 12:19 | DS ---
OB Discharge Summary Delivery Date: 08/23/20 Delivery Time: 07:39 :: 2 Para:: 1 Gestational weeks:: 39 Gestational days:: 3 Intrapartum Procedures: Delivered, Primary Section, Delivery- Low Transverse, Anesthesia - Epidural - labor and c/s, Anesthesia - Spinal - for exam under anesthesia with intrauterine catheter insertion Procedures: Transfusion, Other - Exam under anesthesia with intrauterine abdi balloon insertion /OP Complications: Preeclampsia/GHTN, GDM, Hemorrhage-Uterine Atony Discharge Diagnosis: Term -Delivered, GDM - Oral Dependent, Preeclampsia mild/severe, Rubella Immune - Discharge Information Date of Discharge: 08/26/20 Discharge Location: Home Disposition: Home self-care Condition: Stable Activity on Discharge:: Activity as tolerated, Pelvic Rest, No lifting Discharge Diet: General/regular food Prescriptions (Any new or edited meds): Ibuprofen [Motrin] 200 - 800 mg PO Q6H PRN #100 tab PRN Reason: Pain HYDROcodone/ACETAMINOPHEN [[place] 5-325] 1 ea PO Q3H PRN 5 Days #14 tab PRN Reason: Moderate Pain (Pain Scale 4-6) Transmission Status: Received by [place], [place] Labetalol HCl [Trandate] 100 mg PO BID #60 tab Transmission Status: Received by [place], [place] Complete Home Medications List: Complete Home Medication List: breast pump See Rx Instructions .ROUTE .MEDSUPPLY #1 ea 07/13/20 [id number]/Iron/FA/O3/Dha/Epa/Fish [ Multi-Dha Softgel] 1 ea PO DAILY 08/03/20 HYDROcodone/ACETAMINOPHEN [[place] 5-325] 1 ea PO Q3H PRN 5 Days #14 tab 08/25/20 Labetalol HCl [Trandate] 100 mg PO BID #60 tab 08/25/20 Ibuprofen [Motrin] 200 - 800 mg PO Q6H PRN #100 tab 08/26/20 - Plan Discharge to:: Home Comment:: Routine Discharge Instructions Follow up in office in:: 1 week - [place] Information Weight (Grams): 3,101 Infant Sex: Female Score 1 min: 7 Score 5 min: 9 Circumcision: Not Applicable Infant Complications: Multiple Late Decels, Meconium Other Complications: Mother CHTN with possible superimposed preeclampsia with severe features. Loose nuchal cord x1 at delivery, thin meconium fluid
== END 2020-08-26 15:05 | disposition home or self-care (01) | DRG 787 ==
LOC: OB 18:01
PROVIDERS: ADMIT Obstetrics & Gynecology; ATTEND Obstetrics & Gynecology